=== PATIENT | female | born 1945 | race Two or more races ===

== ENCOUNTER 2017-12-07 15:49 | Outpatient (CLI) | payer OTHER ==
[~2017-12-07 15:49] MED LIST: ZANAFLEX2 M2 PO
== END 2017-12-07 15:54 | disposition home or self-care (01) ==
LOC: NUCLEAR 15:49
DX: M81.0 Age-related osteoporosis without current pathological fracture (principal)

== ENCOUNTER 2021-02-24 12:01 | Emergency (ER) | payer OTHER ==
[~2021-02-24] VITALS: Ht 157.5 cm; Wt 66.7 kg
[2021-02-24] MEDS ORDERED: PLAVIX75 MG (12:23)
[2021-02-24] MEDS ORDERED: TOPROL XL50 M1 (12:23)
[2021-02-24] MEDS ORDERED: LOSARTAN POTASS50 MG (12:24)
[2021-02-24] MEDS ORDERED: ULTRACET PO (15:57)
[2021-02-25] MEDS ORDERED: MULTI-VITAMIN1 EACH PO (08:36)
[2021-02-25] MEDS ORDERED: ADULT LOW DOSE81 M1 PO (08:36)
== END 2021-02-24 16:28 | disposition home or self-care (01) ==
LOC: ER 12:01
DX: S52.592A Other fractures of lower end of left radius, initial encounter for closed fracture (principal); M13.842 Other specified arthritis, left hand; M81.8 Other osteoporosis without current pathological fracture; G56.02 Carpal tunnel syndrome, left upper limb; I25.10 Atherosclerotic heart disease of native coronary artery without angina pectoris; I10 Essential (primary) hypertension; W01.198A Fall on same level from slipping, tripping and stumbling with subsequent striking against other object, initial encounter; Y93.89 Activity, other specified; Y92.018 Other place in single-family (private) house as the place of occurrence of the external cause; Y99.8 Other external cause status

== ENCOUNTER 2021-03-03 06:21 | Day surgery (SDC) | payer OTHER ==
[~2021-03-03 06:21] MED LIST changes: +ADULT LOW DOSE81 M1 PO; +LOSARTAN POTASS50 MG; +MULTI-VITAMIN1 EACH PO; +PLAVIX75 MG; +TOPROL XL50 M1; +ULTRACET PO
[2021-03-03] MEDS ORDERED: DUI500 PO (09:12)
[2021-03-03] MEDS ORDERED: PERCOCET 5-3251 EACH PO (10:19)
== END 2021-03-03 11:05 | disposition home or self-care (01) ==
LOC: CIR.AMB 06:21
PROVIDERS: ATTEND Orthopaedic Surgery
DX: S52.532A Colles' fracture of left radius, initial encounter for closed fracture (principal); Z20.822 Contact with and (suspected) exposure to COVID-19
CPT/HCPCS: 25609; 20902; C1776

== ENCOUNTER 2022-10-29 11:26 | Outpatient (CLI) | payer OTHER ==
[~2022-10-29 11:26] MED LIST changes: +DUI500 PO; +PERCOCET 5-3251 EACH PO
== END 2022-10-29 11:32 | disposition home or self-care (01) ==
LOC: SONOGRAMA 11:26
PROVIDERS: ATTEND Orthopaedic Surgery Foot and Ankle Surgery
DX: M41.25 Other idiopathic scoliosis, thoracolumbar region (principal); R10.2 Pelvic and perineal pain; N91.1 Secondary amenorrhea

== ENCOUNTER 2022-10-29 13:00 | Outpatient (CLI) | payer OTHER | END 2022-10-29 13:04 | disposition home or self-care (01) | LOC: NUCLEAR 13:00 | PROVIDERS: ATTEND Orthopaedic Surgery Foot and Ankle Surgery | DX: M81.0 Age-related osteoporosis without current pathological fracture (principal) ==

== ENCOUNTER 2022-11-29 13:22 | Outpatient (CLI) | payer OTHER | END 2022-11-29 13:27 | disposition home or self-care (01) | LOC: RAD 13:22 | PROVIDERS: ATTEND Obstetrics & Gynecology | DX: R05.8 Other specified cough (principal) ==

== ENCOUNTER → 2022-11-29 | Outpatient (CLI) | payer OTHER | END | disposition home or self-care (01) | LOC: NUCLEAR 13:58 | PROVIDERS: ATTEND Obstetrics & Gynecology | DX: R07.89 Other chest pain (principal) ==

== ENCOUNTER 2023-04-20 15:06 | Outpatient (CLI) | payer OTHER | END 2023-04-20 15:12 | disposition home or self-care (01) | LOC: RAD 15:06 | DX: H26.9 Unspecified cataract (principal); J45.901 Unspecified asthma with (acute) exacerbation; J20.9 Acute bronchitis, unspecified ==